=== PATIENT | female | born 2000 | race Caucasian/White ===

== ENCOUNTER 2018-09-22 16:25 | Emergency (ER) | payer OTHER ==
[2018-09-22 19:03] LABS: ADD MAN DIFF? NO
[2018-09-22 19:06] LABS: BASOPHILS % 0.6 % (0.0-2.0); EOSINOPHILS # 0.1 10^3/ul (0.0-0.5); HEMATOCRIT 43.6 % (37.0-47.0); HEMOGLOBIN 14.9 g/dl (12.0-16.0); LYMPHOCYTES # 2.1 10^3/ul (0.8-2.9); LYMPHOCYTES % 29.5 % (18.0-55.0); MEAN CORPUSCULAR HEMOGLOBIN 30.6 pg (29.0-33.0); MEAN CORPUSCULAR HGB CONC 34.2 g/dl (32.0-37.0); MEAN CORPUSCULAR VOLUME 89.5 fl (72.0-104.0); MEAN PLATELET VOLUME 10.9 fl (7.4-10.4); MONOCYTE # 0.5 10^3/ul (0.3-0.9); MONOCYTES % 6.4 % (0.0-13.0); NEUTROPHIL # 4.3 10^3/ul (1.6-7.5); NEUTROPHILS % 61.2 % (30.0-74.0); PLATELET COUNT 215 10^3/UL (140-415); RED BLOOD COUNT 4.87 10^6/ul (4.20-5.40); RED CELL DISTRIBUTION WIDTH 11.8 % (11.5-14.5)
[2018-09-22 19:06] LABS: WHITE BLOOD COUNT 7.1 10^3/ul (4.8-10.8)
[2018-09-22 19:08] LABS: ADD UMIC NO; UR ASCORBIC ACID NEGATIVE (NEGATIVE); UR BILIRUBIN (Dip) NEGATIVE (NEGATIVE); UR BLOOD (Dip) NEGATIVE (NEGATIVE); UR CLARITY CLEAR (CLEAR); UR COLOR YELLOW (YELLOW); UR GLUCOSE (Dip) NEGATIVE (NEGATIVE); UR KETONES (Dip) TRACE mg/dL (NEGATIVE); UR LEUKOCYTE ESTERASE (Dip) NEGATIVE Leu/ul (NEGATIVE); UR NITRITE (Dip) NEGATIVE (NEGATIVE); UR SPECIFIC GRAVITY (Dip) 1.012 (1.003-1.030); UR TOTAL PROTEIN (Dip) NEGATIVE (NEGATIVE); UR UROBILINOGEN (Dip) NEGATIVE (NEGATIVE)
[2018-09-22 19:31] LABS: ALANINE AMINOTRANSFERASE 22 IU/L (13-69); ALBUMIN 4.8 g/dl (3.3-4.9); ALBUMIN/GLOBULIN RATIO 1.54; ALKALINE PHOSPHATASE 79 IU/L (42-121); ANION GAP 14 (5-13); ASPARTATE AMINO TRANSFERASE 24 IU/L (15-46); BILIRUBIN,INDIRECT 0.2 mg/dl (0-1.1); BILIRUBIN,TOTAL 0.2 mg/dl (0.2-1.3); BLOOD UREA NITROGEN 11 mg/dl (7-20); CALCIUM 9.9 mg/dl (8.4-10.2); CARBON DIOXIDE 28 mmol/L (21-31); CHLORIDE 101 mmol/L (97-110); Estimated GFR > 60 mL/min (>60); GLUCOSE 101 mg/dl (70-220); POTASSIUM 4.2 mmol/L (3.5-5.1); SODIUM 143 mmol/L (135-144); TOTAL PROTEIN 7.9 g/dl (6.1-8.1)
== END 2018-09-22 20:07 | disposition home or self-care (01) ==
LOC: FTE 16:25
DX: H92.01 Otalgia, right ear (principal); R14.0 Abdominal distension (gaseous)
CPT/HCPCS: 80053; 81003; 85025; 99283

== ENCOUNTER 2019-01-01 08:01 | Emergency (ER) | payer MEDICAID, OTHER ==
[2019-01-01 08:50] LABS: ADD MAN DIFF? NO
[2019-01-01 08:53] LABS: BASOPHILS % 0.6 % (0.0-2.0); EOSINOPHILS # 0.1 10^3/ul (0.0-0.5); HEMATOCRIT 47.7 % (37.0-47.0); HEMOGLOBIN 16.3 g/dl (12.0-16.0); LYMPHOCYTES # 1.6 10^3/ul (0.8-2.9); LYMPHOCYTES % 24.8 % (18.0-55.0); MEAN CORPUSCULAR HEMOGLOBIN 30.6 pg (29.0-33.0); MEAN CORPUSCULAR HGB CONC 34.2 g/dl (32.0-37.0); MEAN CORPUSCULAR VOLUME 89.5 fl (72.0-104.0); MEAN PLATELET VOLUME 11.1 fl (7.4-10.4); MONOCYTE # 0.5 10^3/ul (0.3-0.9); MONOCYTES % 7.1 % (0.0-13.0); NEUTROPHIL # 4.2 10^3/ul (1.6-7.5); NEUTROPHILS % 65.2 % (30.0-74.0); PLATELET COUNT 204 10^3/UL (140-415); RED BLOOD COUNT 5.33 10^6/ul (4.20-5.40); RED CELL DISTRIBUTION WIDTH 11.9 % (11.5-14.5)
[2019-01-01 08:53] LABS: WHITE BLOOD COUNT 6.5 10^3/ul (4.8-10.8)
[2019-01-01] MEDS: ONDANSETRON 4 MG INJ IV (08:53)
[2019-01-01] MEDS: KETOROLAC 30 MG INJ IV (08:53)
[2019-01-01] MEDS: SOD CHLORIDE 0.9% 1,000 ML IV (08:53)
[2019-01-01] MEDS: MECLIZINE 12.5 MG TAB PO (08:53)
[2019-01-01 09:10] LABS: ADD UMIC YES; UR ASCORBIC ACID NEGATIVE (NEGATIVE); UR BILIRUBIN (Dip) NEGATIVE (NEGATIVE); UR BLOOD (Dip) 3+ mg/dL (NEGATIVE); UR CLARITY TURBID (CLEAR); UR COLOR RED (YELLOW); UR GLUCOSE (Dip) NEGATIVE (NEGATIVE); UR KETONES (Dip) NEGATIVE (NEGATIVE); UR LEUKOCYTE ESTERASE (Dip) NEGATIVE Leu/ul (NEGATIVE); UR NITRITE (Dip) NEGATIVE (NEGATIVE); UR RBC > 182 /HPF (0-5); UR SPECIFIC GRAVITY (Dip) 1.021 (1.003-1.030); UR TOTAL PROTEIN (Dip) 2+ mg/dl (NEGATIVE); UR UROBILINOGEN (Dip) NEGATIVE (NEGATIVE); UR WBC 2 /HPF (0-5)
[2019-01-01 09:13] LABS: ANION GAP 10 (5-13); BLOOD UREA NITROGEN 12 mg/dl (7-20); CALCIUM 9.5 mg/dl (8.4-10.2); CARBON DIOXIDE 27 mmol/L (21-31); CHLORIDE 106 mmol/L (97-110); CREATININE 0.71 mg/dl (0.44-1.00); Estimated GFR > 60 mL/min (>60); GLUCOSE 103 mg/dl (70-220); POTASSIUM 4.1 mmol/L (3.5-5.1); SODIUM 143 mmol/L (135-144)
== END 2019-01-01 10:01 | disposition home or self-care (01) ==
LOC: FTE 08:01
DX: R42 Dizziness and giddiness (principal)
CPT/HCPCS: 36415; 70450; 80048; 81001; 81025; 85025; 96361; 96374; 96375; 99285-25

== ENCOUNTER 2019-03-04 12:12 | Emergency (ER) | payer OTHER, MEDICAID | END 2019-03-04 12:55 | disposition home or self-care (01) | LOC: FTE 12:55 | DX: R42 Dizziness and giddiness (principal) | CPT/HCPCS: 99282; Z7502 ==

== ENCOUNTER 2019-03-05 23:48 | Emergency (ER) | payer OTHER ==
[2019-03-06] MEDS: DIPHENHYDRAMINE 50 MG INJ IV (00:26)
[2019-03-06] MEDS: FAMOTIDINE 20 MG INJ IV (00:26)
[2019-03-06] MEDS: DEXAMETHASONE 10 MG/ML 1 ML INJ IV (00:26)
[2019-03-06] MEDS: EPINEPHrine 1 MG INJ SC (00:26)
[2019-03-06] MEDS: ALBUTEROL/IPRATROPIUM (NEB) 3 ML AMP HHN (00:28)
== END 2019-03-06 03:55 | disposition home or self-care (01) ==
LOC: E/R 23:48
DX: R06.02 Shortness of breath (principal); T44.995A Adverse effect of other drug primarily affecting the autonomic nervous system, initial encounter
CPT/HCPCS: 94664; 96372; 96374; 96375; 99284-25

== ENCOUNTER 2019-03-06 12:38 | Emergency (ER) | payer OTHER ==
[~2019-03-06 12:38] MED LIST: DIPHENHYDRAMINE 50 MG INJ; EPINEPHrine 1 MG INJ
[2019-03-06] MEDS: SOD CHLORIDE 0.9% 1,000 ML IV ×2 (13:59→15:22)
[2019-03-06] MEDS: LORAZEPAM 2 MG INJ IV (15:22)
== END 2019-03-06 18:04 | disposition home or self-care (01) ==
LOC: E/R 12:38 → FTE 18:04
DX: R00.0 Tachycardia, unspecified (principal)
CPT/HCPCS: 81025; 93005; 96361; 96374; 99284-25

== ENCOUNTER 2019-03-07 12:40 | Emergency (ER) | payer OTHER | END 2019-03-07 13:18 | disposition home or self-care (01) | LOC: E/R 13:18 | DX: F41.9 Anxiety disorder, unspecified (principal) | CPT/HCPCS: 99283; Z7502 ==

== ENCOUNTER → 2019-03-08 | Emergency (ER) | payer OTHER | END | disposition home or self-care (01) | LOC: FTE 14:02 | DX: G47.00 Insomnia, unspecified (principal) | CPT/HCPCS: 99282 ==

== ENCOUNTER 2019-03-17 11:13 | Emergency (ER) | payer OTHER | END 2019-03-17 12:30 | disposition home or self-care (01) | LOC: FTE 12:30 | DX: F41.9 Anxiety disorder, unspecified (principal) | CPT/HCPCS: 99282; Z7502 ==

== ENCOUNTER 2019-03-17 16:12 | Emergency (ER) | payer OTHER ==
[2019-03-17] MEDS: ONDANSETRON (ODT) 4 MG TAB ODT ×2 (16:53→16:55)
[2019-03-17] MEDS: MECLIZINE 12.5 MG TAB PO (16:53)
[2019-03-17] MEDS: LORAZEPAM 0.5 MG TAB PO (17:39)
[2019-03-17 17:54] LABS: ADD MAN DIFF? NO
[2019-03-17 17:56] LABS: WHITE BLOOD COUNT 10.3 10^3/ul (4.8-10.8)
[2019-03-17 17:56] LABS: BASOPHILS % 0.4 % (0.0-2.0); EOSINOPHILS % 0.3 % (0.0-7.0); HEMATOCRIT 45.5 % (37.0-47.0); HEMOGLOBIN 15.7 g/dl (12.0-16.0); LYMPHOCYTES # 1.5 10^3/ul (0.8-2.9); LYMPHOCYTES % 14.1 % (15.0-51.0); MEAN CORPUSCULAR HEMOGLOBIN 30.7 pg (29.0-33.0); MEAN CORPUSCULAR HGB CONC 34.5 g/dl (32.0-37.0); MEAN CORPUSCULAR VOLUME 88.9 fl (82.0-101.0); MEAN PLATELET VOLUME 10.6 fl (7.4-10.4); MONOCYTE # 0.6 10^3/ul (0.3-0.9); MONOCYTES % 5.8 % (0.0-11.0); NEUTROPHIL # 8.2 10^3/ul (1.6-7.5); PLATELET COUNT 252 10^3/UL (140-415); RED BLOOD COUNT 5.12 10^6/ul (4.20-5.40); RED CELL DISTRIBUTION WIDTH 11.9 % (11.5-14.5)
[2019-03-17 18:06] LABS: ADD UMIC YES; UR ASCORBIC ACID NEGATIVE (NEGATIVE); UR BILIRUBIN (Dip) NEGATIVE (NEGATIVE); UR BLOOD (Dip) 1+ mg/dL (NEGATIVE); UR CLARITY CLEAR (CLEAR); UR COLOR COLORLESS (YELLOW); UR GLUCOSE (Dip) NEGATIVE (NEGATIVE); UR KETONES (Dip) TRACE mg/dL (NEGATIVE); UR LEUKOCYTE ESTERASE (Dip) NEGATIVE Leu/ul (NEGATIVE); UR NITRITE (Dip) NEGATIVE (NEGATIVE); UR RBC 0 /HPF (0-5); UR SPECIFIC GRAVITY (Dip) 1.002 (1.003-1.030); UR TOTAL PROTEIN (Dip) NEGATIVE (NEGATIVE); UR UROBILINOGEN (Dip) NEGATIVE (NEGATIVE); UR WBC 0 /HPF (0-5)
[2019-03-17 18:12] LABS: ANION GAP 13 (5-13); BLOOD UREA NITROGEN 10 mg/dl (7-20); CARBON DIOXIDE 25 mmol/L (21-31); CHLORIDE 101 mmol/L (97-110); Estimated GFR > 60 mL/min (>60); GLUCOSE 100 mg/dl (70-220); POTASSIUM 4.1 mmol/L (3.5-5.1); SODIUM 139 mmol/L (135-144)
[2019-03-17 18:52] LABS: THYROID STIMULATING HORMONE 0.436 MIU/L (0.465-4.680)
== END 2019-03-17 19:12 | disposition home or self-care (01) ==
LOC: FTE 16:12
DX: R42 Dizziness and giddiness (principal); F41.9 Anxiety disorder, unspecified; R11.2 Nausea with vomiting, unspecified
CPT/HCPCS: 80048; 81001; 84443; 85025; 93005; 99284-25

== ENCOUNTER 2019-03-19 12:17 | Emergency (ER) | payer OTHER ==
[2019-03-19 12:57] LABS: URINE BLOOD (Dip) POC Negative (NEGATIVE); URINE GLUCOSE (Dip) POC Negative (NEGATIVE); URINE KETONES (Dip) POC Negative (NEGATIVE); URINE LEUKOCYTE EST (Dip) POC Negative (NEGATIVE); URINE NITRITE (Dip) POC Negative (NEGATIVE); URINE TOTAL PROTEIN POC Negative (NEGATIVE)
[2019-03-19 12:57] LABS: URINE PH (Dip) POC 6.5 (5.0-8.5)
[2019-03-19 17:33] LABS: FREE THYROXINE INDEX (Calc) 4.43 ug/ml (0.65-3.89); T3 UPTAKE 34.9 % (23.5-40.5); T4 (THYROXINE) 12.7 ug/dl (5.5-11.0)
[2019-03-19 17:46] LABS: THYROID STIMULATING HORMONE 0.513 MIU/L (0.465-4.680)
== END 2019-03-19 15:14 | disposition home or self-care (01) ==
LOC: FTE 15:14
DX: R19.7 Diarrhea, unspecified (principal); R00.2 Palpitations
CPT/HCPCS: 81003; 81025; 84436; 84443; 84479; 93005; 99284-25

== ENCOUNTER 2019-03-24 09:23 | Emergency (ER) | payer OTHER ==
[2019-03-24] MEDS: KETOROLAC 60 MG INJ IM (10:37)
== END 2019-03-24 11:00 | disposition home or self-care (01) ==
LOC: FTE 09:23
DX: R51 Headache (principal)
CPT/HCPCS: 81025; 96372; 99284-25